=== PATIENT | female | born 1990 | race Two or more races ===

== ENCOUNTER 2018-05-18 20:46 | Emergency (ER) | payer SELFPAY ==
[~2018-05-18] VITALS: Ht 154.9 cm; Wt 60.3 kg
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
[2018-05-18] MEDS ORDERED: IBUPROFEN600 MG ORAL (21:47)
[2018-05-18] MEDS ORDERED: ACETAMINOPHEN-1 EAC1 ORAL (21:47)
[2018-05-18] MEDS ORDERED: ROBAXIN-750750 MG PO (21:47)
[2018-05-19 00:29] VITALS: BP 107/72
--- NOTE | 2018-05-19 10:40 | Diagnostic Imaging Report ---
Indication: pain Right hand pain Findings: 3 views of the right hand were obtained. Normal bony mineralization and alignment are demonstrated. No acute fractures, erosions, or periosteal reaction are seen. Soft tissues are unremarkable. Impression: No acute findings.
== END 2018-05-18 22:06 | disposition home or self-care (01) ==
LOC: EMR 21:28
DX: S16.1XXA Strain of muscle, fascia and tendon at neck level, initial encounter (principal); S76.011A Strain of muscle, fascia and tendon of right hip, initial encounter; V43.62XA Car passenger injured in collision with other type car in traffic accident, initial encounter; Y92.410 Unspecified street and highway as the place of occurrence of the external cause; M79.641 Pain in right hand; Z88.5 Allergy status to narcotic agent
CPT/HCPCS: 99283